=== PATIENT | female | born 1955 | race Caucasian/White ===

== ENCOUNTER 2017-07-22 04:55 | Inpatient (IN) | payer MEDICAID ==
[~2017-07-22] VITALS: Ht 157.5 cm; Wt 90.7 kg
[2017-07-22 04:55] VITALS: BP_SYST 194
[~2017-07-22 04:55] MED LIST: ASPI-1063 PO; HYDR50TA3 PO; LISI-600 PO
[2017-07-22] MEDS ORDERED: KETOROLAC TROMETHAMINE 30 MG VIAL IVP ONE (05:30)
[2017-07-22] MEDS ORDERED: ONDANSETRON HCL 4 MG/2 ML VIAL IVP ONE (05:30)
[2017-07-22 05:47] LABS: BASOPHILS % (AUTO) 1.2 % (0.0-2.0); EOSINOPHILS # (AUTO) 0.1 K/uL (0.0-0.4); EOSINOPHILS % (AUTO) 1.6 % (0.0-4.0); HEMATOCRIT 40.7 % (36-48); HEMOGLOBIN 13.6 g/dL (12.0-16.0); LYMPHOCYTES # (AUTO) 0.9 K/uL (1.0-5.5); MEAN CORPUSCULAR HEMOGLOBIN 29 pg (27-31); MEAN CORPUSCULAR HGB CONC 33 % (32-36); MEAN CORPUSCULAR VOLUME 86 fL (79.0-98.0); MONOCYTES # (AUTO) 0.4 K/uL (0.0-1.0); MONOCYTES % (AUTO) 9.7 % (1.7-9.3); NEUTROPHILS # (AUTO) 2.4 K/uL (1.8-7.7); PLATELET COUNT (AUTO) 144 K/uL (130-430); RED BLOOD CELL COUNT(AUTO) 4.72 MIL/uL (4.2-6.2); RED CELL DISTRIBUTION WIDTH 13.2 % (9.0-15.0); WHITE BLOOD COUNT (AUTO) 3.8 K/uL (4.8-10.8)
[2017-07-22 05:50] LABS: CALCIUM 9.5 mg/dL (8.4-11.0); CREATININE 0.8 mg/dL (0.55-1.30); POTASSIUM 3.7 mmol/L (3.5-5.1)
[2017-07-22 05:55] LABS: ALBUMIN 3.8 g/dL (3.4-4.8); TOTAL BILIRUBIN 1.5 mg/dL (0.0-1.0)
[2017-07-22 06:23] LABS: NEUTROPHILS % (AUTO) 63.5 % (40.0-70.0)
[2017-07-22] MEDS ORDERED: MORPHINE 4 MG/ML INJ. SYRINGE IVP ONE (06:45)
[2017-07-22] MEDS ORDERED: HYDR-4039 PO (06:51)
[2017-07-22] MEDS ORDERED: LISI40TA4 PO (06:51)
[2017-07-22] MEDS ORDERED: OMEP20CA10 PO (06:51)
[2017-07-22] MEDS ORDERED: hydrALAZINE HCL 20 MG/ML VIAL IVP ONE (07:00)
[2017-07-22] MEDS ORDERED: MORPHINE 4 MG/ML INJ. SYRINGE IVP PRN ×3 (07:00→07:45)
[2017-07-22 07:15] VITALS: BP_SYST 134
[2017-07-22] MEDS: D5NS 1,000 ML IV SCH ×2 (07:30→18:12)
[2017-07-22] MEDS ORDERED: MAGNESIUM SULFATE 50 ML IV PRN (07:45)
[2017-07-22] MEDS ORDERED: POTASSIUM CHLORIDE 20 MEQ TAB.PRT.SR PO PRN (07:45)
[2017-07-22] MEDS ORDERED: ACETAMINOPHEN 325 MG TABLET PO PRN (07:45)
[2017-07-22] MEDS ORDERED: LORazepam 2 MG/ML VIAL IVP PRN (07:45)
[2017-07-22] MEDS ORDERED: ONDANSETRON HCL 4 MG/2 ML VIAL IVP PRN (07:45)
[2017-07-22] MEDS ORDERED: MUPIROCIN 2% TOPICAL OINTMENT 22 GM NS PRN (07:45)
[2017-07-22] MEDS ORDERED: DOCUSATE SODIUM 100 MG CAPSULE PO PRN (07:45)
[2017-07-22] MEDS ORDERED: ZOLPIDEM TARTRATE 5 MG TABLET PO PRN (07:45)
[2017-07-22 08:00] VITALS: BP_SYST 115
[2017-07-22 08:04] LABS: CHOLESTEROL 215 mg/dL (<200); HDL CHOLESTEROL 48 mg/dL (>55); LDL CHOLESTEROL 136 mg/dL (<100); TRIGLYCERIDES 117 mg/dL (30-150)
[2017-07-22] MEDS: HEPARIN SODIUM,PORCINE 5000 UNITS/ML VIAL SUBCUT SCH ×2 (10:11→20:38)
[2017-07-22 12:18] VITALS: BP_SYST 132
[2017-07-22 16:03] VITALS: BP_SYST 128
[2017-07-22 20:00] VITALS: BP_SYST 134
[2017-07-23 01:20] VITALS: BP_SYST 132
[2017-07-23] MEDS: D5NS 1,000 ML IV SCH ×2 (04:07→15:51)
[2017-07-23 07:16] LABS: BASOPHILS % (AUTO) 0.9 % (0.0-2.0); EOSINOPHILS # (AUTO) 0.2 K/uL (0.0-0.4); EOSINOPHILS % (AUTO) 4.1 % (0.0-4.0); HEMATOCRIT 35.7 % (36-48); HEMOGLOBIN 12.1 g/dL (12.0-16.0); LYMPHOCYTES # (AUTO) 1.7 K/uL (1.0-5.5); LYMPHOCYTES % (AUTO) 37.7 % (20.5-51.5); MEAN CORPUSCULAR HEMOGLOBIN 30 pg (27-31); MEAN CORPUSCULAR HGB CONC 34 % (32-36); MONOCYTES # (AUTO) 0.3 K/uL (0.0-1.0); MONOCYTES % (AUTO) 6.7 % (1.7-9.3); NEUTROPHILS # (AUTO) 2.2 K/uL (1.8-7.7); NEUTROPHILS % (AUTO) 50.6 % (40.0-70.0); RED BLOOD CELL COUNT(AUTO) 4.06 MIL/uL (4.2-6.2); RED CELL DISTRIBUTION WIDTH 13.1 % (9.0-15.0); WHITE BLOOD COUNT (AUTO) 4.4 K/uL (4.8-10.8)
[2017-07-23 07:23] LABS: MEAN CORPUSCULAR VOLUME 88 fL (79.0-98.0)
[2017-07-23 07:29] LABS: CALCIUM 8.7 mg/dL (8.4-11.0); CREATININE 0.69 mg/dL (0.55-1.30); POTASSIUM 3.2 mmol/L (3.5-5.1)
[2017-07-23 07:50] LABS: PLATELET COUNT (AUTO) 128 K/uL (130-430)
[2017-07-23 08:00] VITALS: BP_SYST 145
[2017-07-23] MEDS: HEPARIN SODIUM,PORCINE 5000 UNITS/ML VIAL SUBCUT SCH ×2 (08:10→21:14)
[2017-07-23] MEDS ORDERED: POTASSIUM CHLORIDE 40 MEQ in NS 250 ML IV ONE (08:45)
[2017-07-23 12:30] VITALS: BP_SYST 148
[2017-07-23 16:35] VITALS: BP_SYST 152
[2017-07-23] MEDS ORDERED: ENALAPRILAT DIHYDRATE 1.25 MG/ML VIAL IVP PRN ×2 (19:30→19:45)
[2017-07-23 19:55] VITALS: BP_SYST 138
[2017-07-24 01:19] VITALS: BP_SYST 140
[2017-07-24] MEDS: D5NS 1,000 ML IV SCH ×2 (03:02→12:14)
[2017-07-24 06:31] LABS: BASOPHILS # (AUTO) 0.1 K/uL (0.0-0.2); EOSINOPHILS # (AUTO) 0.2 K/uL (0.0-0.4); EOSINOPHILS % (AUTO) 4.4 % (0.0-4.0); HEMOGLOBIN 12.3 g/dL (12.0-16.0); LYMPHOCYTES # (AUTO) 2.2 K/uL (1.0-5.5); LYMPHOCYTES % (AUTO) 40.4 % (20.5-51.5); MEAN CORPUSCULAR HEMOGLOBIN 30 pg (27-31); MEAN CORPUSCULAR HGB CONC 34 % (32-36); MEAN CORPUSCULAR VOLUME 88 fL (79.0-98.0); MONOCYTES # (AUTO) 0.4 K/uL (0.0-1.0); MONOCYTES % (AUTO) 7.5 % (1.7-9.3); NEUTROPHILS # (AUTO) 2.6 K/uL (1.8-7.7); NEUTROPHILS % (AUTO) 45.7 % (40.0-70.0); PLATELET COUNT (AUTO) 118 K/uL (130-430); RED BLOOD CELL COUNT(AUTO) 4.08 MIL/uL (4.2-6.2); RED CELL DISTRIBUTION WIDTH 13.1 % (9.0-15.0); WHITE BLOOD COUNT (AUTO) 5.5 K/uL (4.8-10.8)
[2017-07-24 06:52] LABS: ALBUMIN 3.2 g/dL (3.4-4.8); BILIRUBIN,DIRECT 0.2 mg/dL (0.0-0.3); CALCIUM 9.3 mg/dL (8.4-11.0); CREATININE 0.76 mg/dL (0.55-1.30); POTASSIUM 3.8 mmol/L (3.5-5.1); TOTAL BILIRUBIN 0.4 mg/dL (0.0-1.0)
[2017-07-24] MEDS ORDERED: ATROPINE SULFATE 0.5 MG/5 ML SYRINGE IVP ONE (08:15)
[2017-07-24 08:40] VITALS: BP_SYST 161
[2017-07-24] MEDS ORDERED: hydrALAZINE HCL 25 MG TABLET PO SCH (09:00)
[2017-07-24] MEDS: THEOPHYLLINE ANHYDROUS 300 MG TAB.SR.12H PO SCH ×2 (09:10→20:51)
[2017-07-24] MEDS: HEPARIN SODIUM,PORCINE 5000 UNITS/ML VIAL SUBCUT SCH ×2 (09:15→20:56)
[2017-07-24 16:39] VITALS: BP_SYST 199
[2017-07-24] MEDS ORDERED: hydrALAZINE HCL 25 MG TABLET PO ONE (16:45)
[2017-07-24 19:40] VITALS: BP_SYST 159
[2017-07-24] MEDS: hydrALAZINE HCL 25 MG TABLET PO SCH (20:53)
[2017-07-25] VITALS (7 sets, daily range): BP systolic 147–156
[2017-07-25 06:25] LABS: BASOPHILS # (AUTO) 0.1 K/uL (0.0-0.2); BASOPHILS % (AUTO) 1.1 % (0.0-2.0); EOSINOPHILS # (AUTO) 0.1 K/uL (0.0-0.4); EOSINOPHILS % (AUTO) 2.7 % (0.0-4.0); HEMATOCRIT 40.9 % (36-48); HEMOGLOBIN 13.8 g/dL (12.0-16.0); LYMPHOCYTES # (AUTO) 1.8 K/uL (1.0-5.5); LYMPHOCYTES % (AUTO) 35.3 % (20.5-51.5); MEAN CORPUSCULAR HEMOGLOBIN 29 pg (27-31); MEAN CORPUSCULAR HGB CONC 34 % (32-36); MEAN CORPUSCULAR VOLUME 87 fL (79.0-98.0); MONOCYTES # (AUTO) 0.4 K/uL (0.0-1.0); NEUTROPHILS # (AUTO) 2.7 K/uL (1.8-7.7); NEUTROPHILS % (AUTO) 52.9 % (40.0-70.0); PLATELET COUNT (AUTO) 142 K/uL (130-430); RED BLOOD CELL COUNT(AUTO) 4.68 MIL/uL (4.2-6.2); RED CELL DISTRIBUTION WIDTH 12.9 % (9.0-15.0); WHITE BLOOD COUNT (AUTO) 5.1 K/uL (4.8-10.8)
[2017-07-25 06:38] LABS: ALBUMIN 3.6 g/dL (3.4-4.8); BILIRUBIN,DIRECT 0.2 mg/dL (0.0-0.3); CALCIUM 9.7 mg/dL (8.4-11.0); CREATININE 0.61 mg/dL (0.55-1.30); TOTAL BILIRUBIN 0.6 mg/dL (0.0-1.0)
[2017-07-25] MEDS ORDERED: PANTOPRAZOLE SODIUM 40 MG TAB PO SCH (09:00)
[2017-07-25] MEDS: hydrALAZINE HCL 25 MG TABLET PO SCH ×2 (09:14→15:50)
[2017-07-25] MEDS: THEOPHYLLINE ANHYDROUS 300 MG TAB.SR.12H PO SCH (09:14)
[2017-07-25] MEDS: HEPARIN SODIUM,PORCINE 5000 UNITS/ML VIAL SUBCUT SCH (09:18)
== END 2017-07-25 20:30 | disposition home or self-care (01) | DRG 282 ==
LOC: SED 04:55 → SMU 06:50 → STU 07-23 08:51
PROVIDERS: ADMIT General Practice; ATTEND General Practice
DX: K85.90 Acute pancreatitis without necrosis or infection, unspecified (principal); I10 Essential (primary) hypertension; E78.5 Hyperlipidemia, unspecified; E66.9 Obesity, unspecified; K21.9 Gastro-esophageal reflux disease without esophagitis; R74.0 Nonspecific elevation of levels of transaminase and lactic acid dehydrogenase [LDH]; K86.1 Other chronic pancreatitis; M19.90 Unspecified osteoarthritis, unspecified site; R00.1 Bradycardia, unspecified; R74.8 Abnormal levels of other serum enzymes; Z79.899 Other long term (current) drug therapy; I25.2 Old myocardial infarction; Z90.49 Acquired absence of other specified parts of digestive tract; Z68.36 Body mass index [BMI] 36.0-36.9, adult; Z86.73 Personal history of transient ischemic attack (TIA), and cerebral infarction without residual deficits
CPT/HCPCS: 36415; 71045; 74021; 74181; 76700-TC; 80048; 80053; 80061; 80076; 82150-TC; 83690-TC; 83735-TC; 85025; 93005; 93306; 96374; 96375; 99285; J0360; J0461; J1644; J1885; J2060; J2270; J2405; J3480; J7042; J7050

== ENCOUNTER 2019-04-04 22:18 | Emergency (ER) | payer OTHER, MEDICAID ==
[~2019-04-04] VITALS: Ht 157.5 cm; Wt 87.1 kg
[~2019-04-04 22:18] MED LIST changes: -ASPI-1063 PO; +ASPI-1153 PO; +HYDR-4039 PO; -HYDR50TA3 PO; -LISI-600 PO; +LISI40TA4 PO; +OMEP20CA11 PO
[2019-04-04 22:23] VITALS: BP_SYST 160
[2019-04-05] MEDS ORDERED: methylPREDNISolone SOD SUCC/PF 62.5 MG/ML VIAL IVP ONE
[2019-04-05 00:21] LABS: BASOPHILS % (AUTO) 0.2 % (0.0-2.0); EOSINOPHILS # (AUTO) 0.6 K/uL (0.0-0.4); HEMATOCRIT 36.5 % (36-48); HEMOGLOBIN 12.2 g/dL (12.0-16.0); LYMPHOCYTES # (AUTO) 1.5 K/uL (1.0-5.5); LYMPHOCYTES % (AUTO) 18.9 % (20.5-51.5); MEAN CORPUSCULAR HEMOGLOBIN 30 pg (27-31); MEAN CORPUSCULAR HGB CONC 33 % (32-36); MEAN CORPUSCULAR VOLUME 89 fL (79.0-98.0); MONOCYTES # (AUTO) 0.5 K/uL (0.0-1.0); MONOCYTES % (AUTO) 5.7 % (1.7-9.3); NEUTROPHILS # (AUTO) 5.5 K/uL (1.8-7.7); NEUTROPHILS % (AUTO) 67.2 % (40.0-70.0); PLATELET COUNT (AUTO) 159 K/uL (130-430); RED CELL DISTRIBUTION WIDTH 13.9 % (9.0-15.0); WHITE BLOOD COUNT (AUTO) 8.1 K/uL (4.8-10.8)
[2019-04-05 00:36] LABS: CALCIUM 8.9 mg/dL (8.4-11.0); CREATININE 0.84 mg/dL (0.55-1.30); POTASSIUM 3.8 mmol/L (3.5-5.1)
[2019-04-05 00:43] LABS: ALBUMIN 3.5 g/dL (3.4-4.8); TOTAL BILIRUBIN 0.2 mg/dL (0.0-1.0)
[2019-04-05 00:55] LABS: BILIRUBIN,URINE NEGATIVE (NEGATIVE); BLOOD, URINE NEGATIVE (NEGATIVE); CLARITY/URINE CLEAR (CLEAR); COLOR,URINE YELLOW (YELLOW); GLUCOSE,URINE NEGATIVE (NEGATIVE); KETONES,URINE NEGATIVE (NEGATIVE); LEUKOCYTE ESTERASE ,URINE TRACE (NEGATIVE); NITRITE, URINE NEGATIVE (NEGATIVE); PROTEIN URINE NEGATIVE (NEGATIVE); UROBILINOGEN,URINE 0.2 (0.2-1.0)
[2019-04-05 01:02] LABS: BACTERIA,URINE FEW /HPF (None Seen); RBC,URINE 0-3 /HPF (0-3)
[2019-04-05] MEDS ORDERED: ONDANSETRON HCL 4 MG/2 ML VIAL IVP ONE (01:45)
[2019-04-05] MEDS ORDERED: DIPHENHYDRAMINE INJ 50 MG/ML VIAL IVP ONE ×2 (01:45)
[2019-04-05] MEDS ORDERED: MORPHINE 4 MG/ML INJ. SYRINGE IVP ONE (01:45)
[2019-04-05 02:23] VITALS: BP_SYST 137
== END 2019-04-05 02:23 | disposition home or self-care (01) ==
LOC: SED 22:18
DX: T78.40XA Allergy, unspecified, initial encounter (principal); I10 Essential (primary) hypertension; Z79.899 Other long term (current) drug therapy; X58.XXXA Exposure to other specified factors, initial encounter
CPT/HCPCS: 36415; 80053; 81000; 85025; 87086; 96374; 96375; 99283; J1200; J2930

== ENCOUNTER 2019-06-27 12:10 | Emergency (ER) | payer OTHER, MEDICAID ==
[~2019-06-27] VITALS: Ht 167.6 cm; Wt 86.2 kg
--- NOTE | 2019-06-27 12:10 | NUR ---
PATIENT TO ER #4
--- NOTE | 2019-06-27 12:15 | NUR ---
Placed in room 4 . Placed on hospital monitor, blood pressure machine and pulse oximeter. To gown for exam. Side rails up.
--- NOTE | 2019-06-27 12:20 | NUR ---
Pt presents to ER with c/o sore throat x3 days. V/S stable, no distress noted.
[2019-06-27] MEDS ORDERED: HYDR25TA4 PO (12:24)
[2019-06-27] MEDS ORDERED: OXYB10TA2 PO (12:24)
[2019-06-27] MEDS ORDERED: CLON0.1T PO (12:24)
[2019-06-27] MEDS ORDERED: NAPR-1172 PO (12:24)
[2019-06-27] MEDS ORDERED: TRAZ50TA54 PO (12:24)
[2019-06-27 12:25] VITALS: BP_SYST 143
[2019-06-27] MEDS ORDERED: PRED50TA PO (12:25)
--- NOTE | 2019-06-27 12:25 | NUR ---
ER at bedside examining patient.
--- NOTE | 2019-06-27 13:01 | NUR ---
Patient given written and verbal discharge instructions and verbalizes understanding. ER MD discussed with patient the results and treatment provided. Patient in stable condition. ID arm band removed. Rx of Chloraseptic given. Patient educated on pain management and to follow up with PMD. Pain Scale 0/10. Opportunity for questions provided and answered. Medication side effect fact sheet provided.
== END 2019-06-27 13:01 | disposition home or self-care (01) ==
LOC: SED 12:10 → EEVIPCON 12:10 → SED 13:01
DX: J02.9 Acute pharyngitis, unspecified (principal); I10 Essential (primary) hypertension; Z79.899 Other long term (current) drug therapy; Z79.82 Long term (current) use of aspirin
CPT/HCPCS: 99282

== ENCOUNTER 2020-09-23 16:25 | Emergency (ER) | payer MEDICARE, MEDICAID ==
[~2020-09-23] VITALS: Ht 167.6 cm; Wt 86.2 kg
[~2020-09-23 16:25] MED LIST changes: -ASPI-1153 PO; +ASPI-1393 PO; +CLON0.1T PO; +HYDR25TA4 PO; +LISI40TA13 PO; -LISI40TA4 PO; +NAPR-1172 PO; -OMEP20CA11 PO; +OMEP20CA15 PO; +OXYB10TA30 PO; +PRED50TA PO; +TRAZ50TA54 PO
[2020-09-23 16:30] VITALS: BP_SYST 195
[2020-09-23 17:01] LABS: BASOPHILS % (AUTO) 0.8 % (0.0-2.0); EOSINOPHILS # (AUTO) 0.2 K/uL (0.0-0.4); EOSINOPHILS % (AUTO) 3.6 % (0.0-4.0); HEMATOCRIT 39.4 % (36-48); HEMOGLOBIN 13.1 g/dL (12.0-16.0); LYMPHOCYTES # (AUTO) 2.2 K/uL (1.0-5.5); LYMPHOCYTES % (AUTO) 34.5 % (20.5-51.5); MEAN CORPUSCULAR HEMOGLOBIN 29 pg (27-31); MEAN CORPUSCULAR HGB CONC 33 % (32-36); MEAN CORPUSCULAR VOLUME 87 fL (79.0-98.0); MONOCYTES # (AUTO) 0.5 K/uL (0.0-1.0); MONOCYTES % (AUTO) 7.8 % (1.7-9.3); NEUTROPHILS # (AUTO) 3.4 K/uL (1.8-7.7); NEUTROPHILS % (AUTO) 53.3 % (40.0-70.0); PLATELET COUNT (AUTO) 163 K/uL (130-430); RED BLOOD CELL COUNT(AUTO) 4.55 MIL/uL (4.2-6.2); RED CELL DISTRIBUTION WIDTH 14.1 % (9.0-15.0); WHITE BLOOD COUNT (AUTO) 6.4 K/uL (4.8-10.8)
[2020-09-23 17:26] LABS: ANION GAP 9 (5-15); CALCIUM 8.7 mg/dL (8.4-11.0); CHLORIDE 109 mmol/L (98-107); CREATININE 0.87 mg/dL (0.55-1.30); GLUCOSE 96 mg/dL (70-99); POTASSIUM 4.3 mmol/L (3.5-5.1); SODIUM SERUM 143 mmol/L (136-145); UREA NITROGEN, BLOOD 25 mg/dL (8-21)
[2020-09-23] MEDS ORDERED: cloNIDine HCL 0.1 MG TABLET PO ONE (17:30)
[2020-09-23 17:35] LABS: ALANINE AMINOTRANSFERASE 20 U/L (12-78); ALBUMIN 3.4 g/dL (3.4-4.8); ASPARTATE AMINOTRANSFERASE 21 U/L (10-37); TOTAL BILIRUBIN 0.2 mg/dL (0.0-1.0)
[2020-09-23 17:45] LABS: GFR AFRICAN AMERICAN 84 mL/min (>90)
[2020-09-23 18:24] VITALS: BP_SYST 137
== END 2020-09-23 18:23 | disposition home or self-care (01) ==
LOC: SED 16:25
DX: I10 Essential (primary) hypertension (principal); R00.2 Palpitations; Z79.899 Other long term (current) drug therapy
CPT/HCPCS: 36415; 80053; 81002; 84484; 85025; 93005; 99284